=== PATIENT | male | born 1995 | race Caucasian/White ===

== ENCOUNTER 2018-09-27 22:51 | Emergency (ER) | payer OTHER ==
[~2018-09-27] VITALS: Ht 165.1 cm; Wt 68.0 kg
--- NOTE | 2018-09-27 23:45 | NUR ---
BIBS FOR BILAT ANKLES EDEMA
[2018-09-28 00:11] LABS: BASOPHILS % (AUTO) 0.4 % (0.0-2.0); HEMATOCRIT 32 % (39-51); HEMOGLOBIN 11.2 g/dL (13.5-17.5); LYMPHOCYTES # (AUTO) 1.6 /CMM (0.8-4.8); LYMPHOCYTES % (AUTO) 24.7 % (20.0-44.0); MEAN CORPUSCULAR HGB CONC 35 g/dl (31.0-36.0); MEAN CORPUSCULAR VOLUME 91 fL (80-96); MONOCYTES # (AUTO) 0.4 /CMM (0.1-1.30); MONOCYTES % (AUTO) 6.9 % (2.0-12.0); NEUTROPHILS # (AUTO) 4.2 /CMM (1.8-8.9); PLATELET COUNT (AUTO) 182 /CMM (150-450); RED BLOOD CELL COUNT(AUTO) 3.48 MIL/uL (4.5-6.0); WHITE BLOOD COUNT (AUTO) 6.3 K/uL (4.3-11.0)
[2018-09-28 00:19] LABS: CALCIUM, SERUM 8.3 mg/dL (8.5-10.1)
[2018-09-28 00:22] LABS: POTASSIUM 2.7 mmol/L (3.5-5.1)
[2018-09-28] MEDS ORDERED: ALPRAZOLAM 0.5 MG TABLET ONE (00:26)
[2018-09-28] MEDS ORDERED: POTASSIUM CHLORIDE 20 MEQ TAB.PRT.SR PO ONE ×4 (00:26→01:02)
[2018-09-28] MEDS ORDERED: ALPRAZOLAM 0.5 MG TABLET PO ONE (00:30)
--- NOTE | 2018-09-28 01:10 | NUR ---
Patient discharged to home in stable condition. Rx and Written and verbal after care instructions given. Patient verbalizes understanding of instruction. DAD WILL PICK HIM UP
[2018-09-28 01:42] VITALS: BP 108/62
== END 2018-09-28 01:10 | disposition home or self-care (01) ==
LOC: ER 23:03
DX: R60.0 Localized edema (principal); E87.6 Hypokalemia; F41.9 Anxiety disorder, unspecified; K50.90 Crohn's disease, unspecified, without complications
CPT/HCPCS: 36415; 80048-TC; 85025-TC